=== PATIENT | female | born 1945 | race Caucasian/White ===

== ENCOUNTER 2025-05-10 18:50 | Emergency (ER) | payer MEDICARE, OTHER ==
[2025-05-10] MEDS: Ketorolac 15 MG/ML SDV IM ONE (20:21)
== END 2025-05-10 21:31 | disposition home or self-care (01) ==
LOC: JP.ED 18:50
DX: M54.2 Cervicalgia (principal); Z90.710 Acquired absence of both cervix and uterus; Z79.899 Other long term (current) drug therapy
CPT/HCPCS: 96372; 99283; J1885

== ENCOUNTER 2025-05-13 15:12 | Emergency (ER) | payer MEDICARE, OTHER ==
[2025-05-13 18:43] LABS: BASOPHILS ABSOLUTE AUTO 0.02 K/uL (0.00-0.10); BASOPHILS PERCENT AUTO 0.2 % (0.1-1.3); EOSINOPHILS ABSOLUTE AUTO 0.00 K/uL (0.00-0.40); EOSINOPHILS PERCENT AUTO 0.0 % (0.0-5.4); IMMATURE GRAN ABSOLUTE AUTO 0.04 K/uL (0.00-0.23); IMMATURE GRAN PERCENT AUTO 0.3 % (0.0-0.7); LYMPHOCYTES ABSOLUTE AUTO 1.03 K/uL (0.8-3.3); LYMPHOCYTES PERCENT AUTO 8.6 % (11.4-47.7); MONOCYTES ABSOLUTE AUTO 0.58 K/uL (0.20-0.90); MONOCYTES PERCENT AUTO 4.9 % (3.3-12.6); NEUTROPHILS ABSOLUTE AUTO 10.28 K/uL (1.0-7.6); NEUTROPHILS PERCENT AUTO 86.0 % (40.0-78.1); PLATELET COUNT,PLT 200 K/uL (130-375); RED BLOOD CELL COUNT 4.64 M/uL (3.77-5.24); WHITE BLOOD CELL COUNT,WBC 12.0 K/uL (3.2-11.0)
[2025-05-13 19:12] LABS: A/G RATIO 1.0 (1.2-2.2); ALANINE AMINOTRANSFERASE,ALT 19 U/L (12-78); ASPARTATE AMNIOTRANSFERASE,AST 16 U/L (15-37); BILIRUBIN TOTAL 0.6 mg/dL (0.2-1.0); BLOOD UREA NITROGEN,BUN 13 mg/dL (7-18); CARBON DIOXIDE,CO2 30 mmol/L (21-32); CHLORIDE,CL 99 mmol/L (100-108); CREATININE 0.6 mg/dL (0.6-1.0); EST CRCL DRUG DOSING (CG) 70.66 mL/min; ESTIMATED GFR 92 mL/min (>60); GLUCOSE RANDOM 116 mg/dL (74-106); POTASSIUM,K 3.5 mmol/L (3.6-5.2); PROTEIN TOTAL,TP 6.7 g/dL (6.4-8.2); SODIUM,NA 134 mmol/L (140-148); TROPONIN I HIGH SENSITIVITY 53.4 pg/mL (<=60.3)
[2025-05-13] MEDS: Iopamidol 755 Mg/ML 100 ML Bottle IV SCH (19:49)
[2025-05-13 20:18] LABS: APPEARANCE,URINE CLEAR (CLEAR); GLUCOSE,URINE NEGATIVE (NEGATIVE); OCCULT BLOOD,URINE NEGATIVE (NEGATIVE)
[2025-05-13 20:36] LABS: EPITHELIAL CELLS,URINE RARE
[2025-05-13] MEDS: Ketorolac 15 MG/ML SDV IVPUSH ONE (21:50)
== END 2025-05-13 22:01 | disposition home or self-care (01) ==
LOC: JP.ED 15:12
DX: R51.9 Headache, unspecified (principal); T48.1X5A Adverse effect of skeletal muscle relaxants [neuromuscular blocking agents], initial encounter; Z86.16 Personal history of COVID-19; Z86.73 Personal history of transient ischemic attack (TIA), and cerebral infarction without residual deficits; Z90.710 Acquired absence of both cervix and uterus; Z79.899 Other long term (current) drug therapy
CPT/HCPCS: 36415; 70450; 70496; 70498; 80053; 81001; 83605; 84484; 85025; 93005; 96361; 96374; 99285; J1885; J7030; Q9967

== ENCOUNTER 2025-06-22 15:29 | Emergency (ER) | payer MEDICARE, OTHER ==
[2025-06-22] MEDS: EPINEPHrine 1 MG/ML SDV IM ONE (15:46)
[2025-06-22] MEDS: methylPREDNISolone Sodium Succinate 125 MG/2 ML SDV IVPUSH ONE (15:47)
[2025-06-22] MEDS: diphenhydrAMINE 50 MG/ML SDV IVPUSH ONE (15:47)
== END 2025-06-22 18:51 | disposition home or self-care (01) ==
LOC: JP.ED 15:29
DX: T63.441A Toxic effect of venom of bees, accidental (unintentional), initial encounter (principal); T78.2XXA Anaphylactic shock, unspecified, initial encounter; E78.00 Pure hypercholesterolemia, unspecified; Z91.030 Bee allergy status; Z79.899 Other long term (current) drug therapy; Z86.16 Personal history of COVID-19; Z90.710 Acquired absence of both cervix and uterus
CPT/HCPCS: 96361; 96372; 96374; 96375; 99283; 99284; J0169; J1200; J1308; J2919; J7030